=== PATIENT | male | born 1940 | race Caucasian/White ===

== ENCOUNTER 2017-09-10 16:00 | Inpatient (IN) ==
[2017-09-10] MEDS: CITALOPRAM 20 MG TABLET PO SCH (20:06)
[2017-09-10] MEDS: LISINOPRIL 10 MG TABLET PO SCH (20:07)
[2017-09-10] MEDS: MIRABEGRON 25mg TABLET PO SCH (20:08)
[2017-09-10 20:13] VITALS: BMI 27.1
[2017-09-10] MEDS ORDERED: LISINOPRIL 20 MG TABLET PO SCH (21:00)
[2017-09-11] MEDS: ASPIRIN 81 MG CHEWABLE TABLET PO SCH (09:06)
[2017-09-11] MEDS: ASCORBIC ACID 500 MG TABLET PO SCH (09:07)
[2017-09-11] MEDS: GlipiZIDE 5 MG TABLET PO SCH (09:07)
[2017-09-11] MEDS: MULTI-VITAMIN + MINERAL TABLET PO SCH (09:07)
[2017-09-11] MEDS: VITAMIN E 400 UNIT CAPSULE PO SCH (09:07)
[2017-09-11] MEDS: LISINOPRIL 20 MG TABLET PO SCH (09:07)
[2017-09-11] MEDS: ENOXAPARIN 40 MG/0.4 ML INJECTION SQ SCH (09:07)
[2017-09-11] MEDS: OMEGA-3 ACID ESTERS 1 GM CAPSULE PO SCH (09:08)
--- NOTE | 2017-09-11 11:18 | Consult Note ---
Consult Information - Data of Consult Consult date: 09/11/17 Requesting Physician: Napoleon Clemente MD Primary Care Provider: Roxy Merrill MD Family Provider: Roxy Merrill MD - Consult Narrative Reason for consult: Medical managment of HTN, Parkinsons History of present illness: Emmanuel is a pleasant 77-year-old gentleman who resides independently at home with his under the primary care of Dr. Roxy Merrill. Unfortunately he fell striking his head on 09/01/17. He was seen in the emergency room at that time. CT scan of the brain was performed that did not show any acute evidence of intracranial abnormality or hemorrhage. Patient was discharged home. On . He returned to the emergency room for reevaluation complaining of general weakness since his fall. A repeat CT scan was performed that again showed no intracranial abnormalities or hemorrhages. He was given IV hydration was able to ambulate using his walker without difficulty. He was discharged home. Today 09/10/17. He followed up with primary care provider, Dr. Roxy Merrill. He was noted to have some Hemianopsia with right side dyscoordination. There is concern that he has possibly had a CVA. Given his underlying parkinsons accompanied with new weakness and discoordination the rehabilitation unit was contacted and accepted patient for direct admission for ongoing evaluation and therapy for strengthening. Hospital services were consulted for medical management of existing comorbidities including hypertension, diabetes, hyperlipidemia or concerns. Emmanuel is seen this morning during breakfast. He is working with speech therapy while attempting to drink liquids out of a straw he does cough/choke. He denies having any acute pain upon examination. He states that he feels weak and generally fatigued. Past Medical History Patient Stated Medical History Recent fall with head injury- 09/01/17 Parkinson's with dementia Hypertension Type II diabetes. BPH Hyperlipidemia Depression History of TIA Constipation History of shingles Surgical History: Tonsillectomy. Right ankle surgery Family History Updates: Father and mother both with Parkinson's disease - Social History Smoking status: Never smoker Substance use type: does not use Housing: house Household members: spouse Current occupational status: retired Current residence: Apartment/Private Home Social history: Primary care provider, Dr. Roxy Merrill Review of Systems All systems PM: 10-point ROS was reviewed, no additional remarkable complaints except - Constitutional Constitutional: Present: fatigue, weakness - EENMT Eyes: Present: change in vision Medications Home Medications Medication Instructions Recorded Confirmed Type Metformin HCl [Metformin HCl ER] 1,000 mg PO BID #0 05/15/13 09/10/17 History Mirabegron [Myrbetriq] 50 mg PO HS #0 08/19/15 09/10/17 History Ascorbic Acid [Vitamin C] 500 mg PO DAILY 09/01/17 09/10/17 History Carbidopa/Levodopa 1 tab PO BID 09/01/17 09/10/17 History [Carbidopa-Levodopa 25-100 Tab] Citalopram [Celexa] 20 mg PO HS 09/01/17 09/10/17 History Dulaglutide [Trulicity] 0.75 mg PO WEEKLY 09/01/17 09/10/17 History Dutasteride/Tamsulosin HCl 1 tab PO DAILY 09/01/17 09/05/17 History [Dutasteride-Tamsulosin 0.5-0.4] GlipiZIDE [Glucotrol] 5 mg PO DAILY 09/01/17 09/10/17 History Lisinopril [Prinivil] 20 mg PO BID 09/01/17 09/10/17 History Multivitamin [One Daily] 1 tab PO DAILY 09/01/17 09/10/17 History [place]-3/Dha/Epa/Fish Oil [Fish Oil 1,000 mg PO DAILY 09/01/17 09/10/17 History 1,000 mg Softgel] Verapamil SR [Calan Sr] 180 mg PO BID 09/01/17 09/10/17 History Vitamin E 400 unit PO DAILY 09/01/17 09/10/17 History Lisinopril [Prinivil] 10 mg PO HS 09/10/17 09/10/17 History Allergies Allergy/AdvReac Type Severity Reaction Status Date / Time atorvastatin [From Lipitor] Allergy Unknown Verified 09/10/17 20:28 clindamycin Allergy Unknown Verified 09/10/17 20:28 donepezil [From Aricept] Allergy Unknown Verified 09/10/17 20:27 Penicillins Allergy Unknown CONSTRICTS Verified 09/05/17 13:15 AIRWAY shellfish derived Allergy Unknown Verified 09/05/17 13:15 Exam Vital Signs: Temperature 97.6 F 09/10/17 21:14 Pulse Rate 73 09/10/17 21:14 Respiratory Rate 20 09/10/17 21:14 Blood Pressure 176/73 H 09/10/17 21:14 Pulse Oximetry 99 09/10/17 21:14 Height/Weight/BMI: Height 1.75 m Weight 83.5 kg Body Mass Index 27.1 - Constitutional Present: no acute distress, well nourished, well developed - Routine HEENT Exam Eye: Present: EOMI ENT: Present: mucous membranes moist, dentition normal - Routine Respiratory Exam Present: CTA bilaterally. Absent: wheezes - Routine Cardiovascular Exam Present: RRR, S1, S2. Absent: murmur - Routine Abdominal Exam Present: soft, normoactive bowel sounds, non distended. Absent: tenderness - Routine Extremities Exam Present: no edema - Routine Skin Exam Present: dry, warm - Routine Neurological Exam Present: alert, oriented X3, CN II-XII intact, moving all extremities, vision grossly intact, hearing grossly intact, normal speech. Absent: sensory deficit , motor deficit - Routine Psychiatric Exam Present: normal affect, cooperative Results - Labs CBC & Chem 7: 09/11/17 04:26 09/11/17 04:26 Assessment and Plan (1) Weakness Current visit: Yes Status: Acute Assessment and Plan: Impression Weakness Hypokalemia- POA- 3.0 Hypernatremia- POA- 145 ? Recent CVA Type II diabetes Hypertension Hyperlipidemia Parkinson's with dementia Plan Agree with admission to IRU under care of Dr. Clemente for ongoing therapy and strengthening. Given Hypokalemia will given PO potassium 40 meq at 1200 and 1700 today. Then schedule 20 meq BID. Will check BMP tomorrow morning to follow electrolytes Hypernatremia - encourage PO intake. Monitor Accu-Cheks, continue on home glipizide, metformin Continue with other home medications. Monitor blood pressure as it is elevated this morning, currently on verapamil. Home lisinopril was increased to 20 mg daily plus 10 meq at bedtime. Will add PRN hydralazine as needed for hypertension. Lovenox subcutaneous daily for DVT prophylaxis Current work with PT and OT for ongoing strengthening The hospitalist services will continue to follow patient medically manage his existing comorbidities during his stay [facility]. At time of discharge his medical care will return to his primary care provider Dr. Desirae Barcenas clinic Did speak with patients - Kelly. We discussed obtaining a MRI to confirm CVA and possible treatment of Plavix. Discussed risks and benefits of Plavix and pts increase risk of falling. 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 Chart reviewed. Case discussed with my [employer] SUPER[employer]OR [employer]ARD. Care plan developed with my supervision; agree with above. Admitted to IRU for restorative care secondary to increased weakness and falls- PCP concerned about possible stroke. Patient notes much harder to get around. Legs not cooperating well. Not really feeling weakness or discoordination of his arm or legs. Report when he falls, his legs 'just go out from under him.' Denies feeling dizzy. No recent viral syndrome. Not noting SOA, cough, or chest congestion. No chest pressure, pain, or palpitations. Eating well-no nausea or ab pain. Stools stable; sometime slow, but not watery stool. Urinating at baseline. Lungs: decreased bilaterally. No distress on RA. CV: regular AB: soft nt/nd MSE: awake alert appropriate Imaging: MRI does confirm large area of acute right posterior temporal and occipital lobe infarct. Plan: Agree with admission to IRU for restorative therapy following his CVA and to help maximize strength in light of Parkinson's. With stroke occurring on ASA , could initiate Plavix therapy to help provide further vascular protection. Will check Lipid profile - pt does list allergy to atorvastatin (Lipitor). Continue home antihypertensive - avoid hypotension. Monitor blood sugars - avoid hypoglycemia. Replace potassium - monitor BMP secondary to medication and hypokalemia. Encourage participation with therapy to maximize functional status. Medically stable for IRU floor activities. Hospital Course Summary Disclaimer: The visit summary below is not to be considered part of the above Progress Note. Hospital Course: 09/11/17 Impression Weakness Hypokalemia- POA- 3.0 Hypernatremia- POA- 145 ? Recent CVA Type II diabetes Hypertension Hyperlipidemia Parkinson's with dementia Plan Agree with admission to IRU under care of Dr. Clemente for ongoing therapy and strengthening. Given Hypokalemia will given PO potassium 40 meq at 1200 and 1700 today. Then schedule 20 meq BID. Will check BMP tomorrow morning to follow electrolytes Hypernatremia - encourage PO intake. Monitor Accu-Cheks, continue on home glipizide, metformin Continue with other home medications. Monitor blood pressure as it is elevated this morning, currently on verapamil. Home lisinopril was increased to 20 mg daily plus 10 meq at bedtime. Will add PRN hydralazine as needed for hypertension. Lovenox subcutaneous daily for DVT prophylaxis Current work with PT and OT for ongoing strengthening The hospitalist services will continue to follow patient medically manage his existing comorbidities during his stay [facility]. At time of discharge his medical care will return to his primary care provider Dr. Desirae Barcenas clinic Did speak with patients - Kelly. We discussed obtaining a MRI to confirm CVA and possible treatment of Plavix. Discussed risks and benefits of Plavix and pts increase risk of falling. She will think about this and we will discuss this later this afternoon further when she is here [place] [facility]
[2017-09-11] MEDS ORDERED: HYDRALAZINE 10 MG TABLET PO PRN (11:34)
--- NOTE | 2017-09-11 12:24 | IRU History & Physical Report ---
HPI IRU Date: Date: 09/11/17 Time: 1216 Chief complaint: I'm weak HPI: Mr. Mullins is pleasant 77-year-old male referred by Dr. Rashi Merrill who is also his primary care physician. The patient has had 2 visits to the emergency department recently. Initially he presented on 09/01/2017 after he had fallen at home and striking his head on a wall. Evaluation at that time in the emergency department revealed a negative exam and negative CT scan. He was sent home. The patient was again seen in the emergency department on 09/05/2017. That time he was complaining of weakness. He was given IV fluids and potassium supplement. Repeat CT scan was negative. He appeared to be more confused than he had been previously according to his . According to the note, the patient 's wanted to take him home over the holidays and seek further evaluation later. He was subsequently seen at Dr. Merrill's office on 09/10/2017 for evaluation. At that time she noted that he had a significant left hemianopsia as well as some right sided weakness. She felt as though the patient had suffered an acute stroke in the preceding week some time. He was unable to be cared for at home and thus referral was made to acute inpatient rehabilitation. Upon my evaluation, the patient does not have recollection of his recent history. He is somewhat slow to respond although does know that the month is August. He believes the date is August 17 or (it is the ). He was able to come up with the year without prompting and knows that the president is President Mian. The patient denies any headaches. The patient has multiple medical problems including a recent diagnosis of Parkinson's disease. He has diabetes mellitus and does not use insulin. He checks his blood sugars daily and they run around 145-160 fasting. He does not recall what his A1c is running. He has had several falls over the last several weeks apparently. Does use a front-wheeled walker at home. He lives with his at home. In addition the patient does have overactive bladder with urinary incontinence, dementia associated with his Parkinson's disease and hypertension. Prior level of functioning is as follows: He was independent for eating and modified independent for grooming, bathing, upper and lower body dressing, toileting, bed/chair/wheelchair transfers, toilet transfers and walking. He was modified independent for stair climbing. He used a rolling walker. provided I-ADLs. Current level of functioning is as follows: He was unable to be tested for grooming, bathing or upper and lower body dressing or toileting. He requires moderate assistance for bed/chair/wheelchair transfers, minimum assistance for toilet transfers, moderate assistance for walking. He was not able to be tested for stairs. The following medical conditions are noted and require active monitoring and/or management: 1. Recent CVA characterized by left hemianopsia and some right upper extremity weakness and reduced fine motor movement. He is at risk for further extension of the stroke with further weakness. 2. Dementia related to his Parkinson's disease: He is at risk for further memory loss and inability to care for himself 3. Hypertension: Currently his blood pressures are not controlled. He is running 160 systolic. He is at risk for further uncontrolled hypertension. 4. Diabetes mellitus type 2: He is at risk for hypoglycemia or hyperglycemia depending on his work output and his intake. 5. Hypokalemia: His current potassium is low and this will need to be supplemented. The following therapies will be needed: 1. Physical therapy: for transfers and ambulation and stairs. 2. Occupational therapy: for ADL's and transfers. 3. Dietitian: In view of his diabetes. 4. Medical management: for the above conditions. 5. 24 hour Rehabilitation Nursing to monitor and address the following: Close monitoring of blood sugars, blood pressures and neurologic status will be undertaken. He is at risk for falls and this will be monitored and treated as well. [facility] Patient Stated Medical History Cerebrovascular Accident Yes: recent Dementia Yes Parkinson's Disease Yes Transient Ischemic Attacks ( Yes TIA) Hypertension Yes Diabetes Mellitus Type 2 Yes Constipation No Hx Benign Prostatic Yes Hyperplasia Hx Incontinence Yes Shingles Yes: hx Depression Yes Medical History Updates: 1. Recent CVA characterized by left hemianopsia and right upper extremity weakness. 2. Dementia related to Parkinson's disease. 3. Hypertension. 4. Diabetes mellitus type 2 Surgical History: Tonsillectomy. Right ankle surgery Family History: Father of Parkinson's disease. Mother of old age according to the patient. - Social History Smoking status: Never smoker Alcohol intake: former (rare intake of wine in the past) Last drink: unknown Current occupational status: retired Current residence: Apartment/Private Home Social history: Primary care provider, Dr. 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 He lives at home with his in their own home. She does provide IADL assistance. Review of Systems - Constitutional Constitutional: Present: lethargy, weakness. Absent: anorexia, chills, fatigue , fever(s), headache(s), malaise, night sweats, weight gain, weight loss Comments: Increased confusion - EENMT Eyes: Present: change in vision (apparently has new loss of vision left shoulder vision), loss of vision. Absent: blurry vision, diplopia Mouth/Throat: Absent: changes in swallowing, painful swallowing, change in taste , bleeding gums, change in voice - Cardiovascular Cardiovascular: Absent: chest pain, palpitations, syncope, dyspnea on exertion, orthopnea, edema, cyanosis, heart murmur Rhythm: Present: regular rhythm Vascular: Absent: intermittent claudication, pedal edema, unilateral swelling - Respiratory Respiratory: Absent: cough, dyspnea, hemoptysis, dyspnea on exertion, wheezing, pain on inspiration, chest congestion, excessive phlegm production - Gastrointestinal Gastrointestinal: Absent: abdominal pain, change in bowel habits, constipation, diarrhea, dyspepsia, dysphagia, early satiety, hematochezia, melena, nausea, vomiting - Genitourinary Genitourinary: Present: urinary incontinence - Musculoskeletal Musculoskeletal: Present: myalgias. Absent: abnormal gait, arthralgias, back pain, joint swelling, limited range of motion, muscle weakness - Integumentary/Breasts Integumentary: Absent: alopecia, erythema, lesions, pruritus, rash, jaundice - Neurological Neurological: Present: focal weakness (right upper extremity with reduced fine motor movement), loss of vision (dense left hemianopsia), memory loss (appears to have memory loss.), weakness. Absent: abnormal gait, abnormal movements, abnormal speech, convulsions, dizziness, frequent falls, headache(s), numbness, paresthesias, tremor(s) - Psychiatric Psychiatric: Absent: abnormal sleep pattern, anxiety, depression - Endocrine Endocrine: Absent: cold intolerance, flushing, heat intolerance, palpitations - Hematologic/Lymphatic Hematologic/Lymphatic: Absent: easy bleeding, easy bruising, lymphadenopathy - Allergic/Immunologic Allergic/Immunologic: Absent: urticaria Medications Home Medications Medication Instructions Recorded Confirmed Type Metformin HCl [Metformin HCl ER] 1,000 mg PO BID #0 05/15/13 09/10/17 History Mirabegron [Myrbetriq] 50 mg PO HS #0 08/19/15 09/10/17 History Ascorbic Acid [Vitamin C] 500 mg PO DAILY 09/01/17 09/10/17 History Carbidopa/Levodopa 1 tab PO BID 09/01/17 09/10/17 History [Carbidopa-Levodopa 25-100 Tab] Citalopram [Celexa] 20 mg PO HS 09/01/17 09/10/17 History Dulaglutide [Trulicity] 0.75 mg PO WEEKLY 09/01/17 09/10/17 History Dutasteride/Tamsulosin HCl 1 tab PO DAILY 09/01/17 09/05/17 History [Dutasteride-Tamsulosin 0.5-0.4] GlipiZIDE [Glucotrol] 5 mg PO DAILY 09/01/17 09/10/17 History Lisinopril [Prinivil] 20 mg PO BID 09/01/17 09/10/17 History Multivitamin [One Daily] 1 tab PO DAILY 09/01/17 09/10/17 History [place]-3/Dha/Epa/Fish Oil [Fish Oil 1,000 mg PO DAILY 09/01/17 09/10/17 History 1,000 mg Softgel] Verapamil SR [Calan Sr] 180 mg PO BID 09/01/17 09/10/17 History Vitamin E 400 unit PO DAILY 09/01/17 09/10/17 History Lisinopril [Prinivil] 10 mg PO HS 09/10/17 09/10/17 History Allergies Allergy/AdvReac Type Severity Reaction Status Date / Time atorvastatin [From Lipitor] Allergy Unknown Verified 09/10/17 20:28 clindamycin Allergy Unknown Verified 09/10/17 20:28 donepezil [From Aricept] Allergy Unknown Verified 09/10/17 20:27 Penicillins Allergy Unknown CONSTRICTS Verified 09/05/17 13:15 AIRWAY shellfish derived Allergy Unknown Verified 09/05/17 13:15 Exam Vital Signs: Temperature 98.0 F 09/11/17 08:00 Pulse Rate 79 09/11/17 08:00 Respiratory Rate 16 12/29/17 08:00 Blood Pressure 180/88 H 09/11/17 08:00 Pulse Oximetry 96 09/11/17 08:00 Height/Weight/BMI: Height 1.75 m Weight 83.5 kg Body Mass Index 27.1 - Constitutional Present: no acute distress, well nourished, well developed, average body habitus , cooperative Comments: Somewhat slow to respond at times. - Routine HEENT Exam Head: Present: normocephalic, atraumatic. Absent: cushingoid faces, abrasion, laceration, hematoma Eye: Present: EOMI, PERRL. Absent: conjunctival icterus, scleral injection, periorbital swelling, nystagmus ENT: Present: mucous membranes moist, oropharynx clear Comments: Dense left hemianopsia noted on confrontation. Pupils equal in size and equally respond to light. - Routine Neck Exam Present: supple, full ROM, trachea midline. Absent: lymphadenopathy, thyromegaly, tenderness, swelling - Routine Chest/Breast/Axilla Exam Chest wall: Absent: tenderness, mass Axillae: Absent: lymphadenopathy, mass - Routine Respiratory Exam Present: CTA bilaterally. Absent: accessory muscle use, decreased breath sounds , prolonged expiratory phase, rales, respiratory distress, rhonchi, stridor, wheezes, crackles, distant breath sounds - Routine Cardiovascular Exam Present: RRR, S1, S2, no murmur. Absent: gallop, S3, S4, click, irregular rhythm - Routine Abdominal Exam Present: soft, normoactive bowel sounds, non distended, non tender. Absent: rebound, guarding, firm, rigid, organomegaly, mass, hernia, wound - Routine Extremities Exam Present: no edema, non tender, pulses intact, normal capillary refill. Absent: cyanosis, clubbing - Routine Back/Spine/Pelvis Exam Back/Spine: Present: full ROM. Absent: scoliosis, kyphosis - Routine Skin Exam Present: intact, dry, warm. Absent: cyanosis, erythema, pallor, mottling, petechiae, urticaria, lesions, jaundice - Routine Neurological Exam Present: alert, oriented X3, CN II-XII intact, motor deficit (slight reduction in fine motor movement right upper extremity), moving all extremities, normal speech Dense left hemianopsia noted. In addition, patient does seem to have some reduced fine motor movement particular involving the right upper extremity. I do not see any facial droop. Strength of both lower extremities appears to be bilaterally and symmetrically reduced. - Routine Psychiatric Exam Present: normal affect, cooperative. Absent: normal thought process (displays loss of memory and some confusion), good insight, good judgment, depressed, anxious Sepsis Assessment - Evaluation Severe Sepsis: none seen IRU A/P (1) Ischemic cerebrovascular accident (CVA) Current visit: Yes Status: Acute Based on left hemianopsia as well as some right upper extremity weakness, he apparently has had a recent CVA. He is at risk for further evolution of the CVA as well as decline neurologically. (2) Benign essential hypertension Current visit: Yes Status: Chronic Has a history of hypertension. However blood pressures at present are running a bit high at 180 systolic. He is at risk for uncontrolled hypertension and medications will be adjusted etc. (3) Parkinson disease Current visit: Yes Status: Chronic Has a recent diagnosis of Parkinson's disease. In conjunction with as he likely does have some dementia. He is at risk for falls as well as further functional decline. (4) Hypokalemia Current visit: Yes Status: Acute Potassium was low in the emergency department and is again low at the present time. He will be placed on supplemental potassium. (5) DM type 2 (diabetes mellitus, type 2) Qualifiers: Diabetes mellitus complication status: without complication Diabetes mellitus terminal worker insulin use: without terminal worker use Qualified Code(s): E11.9 - Type 2 diabetes mellitus without complications Current visit: Yes Status: Chronic Due to variable energy requirements and variable intake, he is at risk for hyperglycemia or hypoglycemia. DVT Prophylaxis: SCD's, Lovenox Resuscitation Status: Do Not Resuscitate - Course Hospital Course: Napoleon Clemente MD: - Interventions to Obtain Goals PT Treatment Plan: Balance/Proprioception, Functional Activities, Gait Training , Patient/Family Education, Therapeutic Exercise OT Treatment Plan: ADL (Basic Care), Balance Training, Pt./Family Education, Ther. Exercise for ADL Goals Progress/Modifications: A multidisciplinary approach would be undertaken for his physical therapy, occupational therapy with 24 rehabilitation nursing and medical supervision. He is a complex patient with multiple medical problems. He is at risk for further neurologic decline, uncontrolled hypertension as well as uncontrolled diabetes.
--- NOTE | 2017-09-11 13:29 | IRU 24Hr Post Admit Eval ---
24 Hr Post Admission Physical - Relevant Changes Relevant Changes: No Reviewed: I have reviewed the patient's information and concur with the finding and results of the pre-admission screen. Certification: I certify the patient for rehabilitation. - Patient Condition (1) Ischemic cerebrovascular accident (CVA) Status: Acute Code(s): I63.9 - Cerebral infarction, unspecified Classification: Present on IRF Admission, IRF Tx That Should Address Diagnosis, Diagnosis Requiring Medical Follow Up (2) Benign essential hypertension Status: Chronic Code(s): I10 - Essential (primary) hypertension Classification: Present on IRF Admission, IRF Tx That Should Address Diagnosis, Diagnosis Requiring Medical Follow Up (3) Parkinson disease Status: Chronic Code(s): G20 - Parkinson's disease Classification: Present on IRF Admission, IRF Tx That Should Address Diagnosis, Diagnosis Requiring Medical Follow Up (4) Hypokalemia Status: Acute Code(s): E87.6 - Hypokalemia Classification: Present on IRF Admission, IRF Tx That Should Address Diagnosis, Diagnosis Requiring Medical Follow Up (5) DM type 2 (diabetes mellitus, type 2) Status: Chronic Qualifiers: Diabetes mellitus complication status: without complication Diabetes mellitus terminal make up operator insulin use: without terminal make up operator use Qualified Code(s): E11.9 - Type 2 diabetes mellitus without complications Code(s): E11.9 - Type 2 diabetes mellitus without complications Classification: Present on IRF Admission, IRF Tx That Should Address Diagnosis, Diagnosis Requiring Medical Follow Up - Prior Functional Status Lives With: Spouse Residence Type: Apartment/Private Home Assitive Devices: Front Wheeled Walker Prior Functional Status: Indep. at home or school, Depend. w/ IADL - Current Functional Status Current Level of Function: Current level of functioning is as follows: He was unable to be tested for grooming, bathing or upper and lower body dressing or toileting. He requires moderate assistance for bed/chair/wheelchair transfers, minimum assistance for toilet transfers, moderate assistance for walking. He was not able to be tested for stairs. Failed Alternative Therapy: Yes Patient Requirements: The patient requires oversight by rehabilitation physician to manage their rehabilitation treatment plan and multidisciplinary approach to care that can only be provided in an IRF and requires a multidisciplinary approach to care, provided by professional PTs, OTs, STs, dieticians, RTs, rehabilitation nurses and is not available in lesser levels of care. Limitations Req: Mobility Impairment, ADL Impairment, Limited Mobility, Cognitive Impairment Therapy: The patient is to receive therapy at least 5 days a week. Plan of Care Comment: Physical therapy: 75 minutes 3 days weekly, 90 minutes 2 days weekly. Occupational therapy: 75 minutes 3 days weekly, 90 minutes 2 days weekly. Speech therapy: 30 minutes 3 days weekly - Complications/Comorbidities Impact on Functional Outcomes: Patient's Parkinson's disease and mental status/ cognitive impairment may impact his functional outcome. Barriers to Discharge: Weakness, Balance, Endurance, Comprehension, Medical Limitation - Plan to Avoid Complications Plan to Avoid Complications: The patient cannot receive this care in a lesser intensive setting such as Alf or Outpatient Therapy due to the patient requiring the following : The patient requires close monitoring of his blood sugars as well as blood pressure and neurologic status. He requires 24 rehabilitation nursing monitoring as well as a multidisciplinary approach involving speech therapy, occupational therapy and physical therapy. He requires medical supervision.
--- NOTE | 2017-09-11 17:46 | Magnetic Resonance Report ---
Indication: Recent fall with head injury and mental status changes, possible CVA PROCEDURE: MR head/brain wo con: Encounter: Initial Comparisons: Head CT dated September 05, 2017 Technique: Multiplanar, multisequence, MR imaging of the head without contrast was acquired. FINDINGS: Large area of acute diffusion restriction in the right medial posterior temporal lobe extending into the occipital lobe. This area shows T2/FLAIR hyperintensity as expected and some areas of laminar cortical necrosis. No acute hemorrhage or hemorrhagic transformation. Severe atrophy. The ventricles are dilated but proportional to the degree of atrophy. There are extensive areas of T2-weighted and T2 FLAIR weighted signal abnormality in the deep frontoparietal white matter that most likely represent small vessel ischemic disease. This is advanced for the patient's age. Old lacunar infarcts in the basal ganglia, shirley and midbrain. There is no evidence of an intracranial mass lesion or hydrocephalus. The visualized portions of the orbits, calvarium, paranasal sinuses, and skull base demonstrate no significant abnormality. IMPRESSION: Large acute right posterior temporal and occipital lobe infarct in the [employer] territory. .
[2017-09-11] MEDS: LISINOPRIL 10 MG TABLET PO SCH (21:23)
[2017-09-11] MEDS: CITALOPRAM 20 MG TABLET PO SCH (21:23)
[2017-09-11] MEDS: MIRABEGRON 25mg TABLET PO SCH (21:24)
[2017-09-12] MEDS ORDERED: HYDRALAZINE 10 MG TABLET PO PRN (00:08)
[2017-09-12] MEDS: ASPIRIN 81 MG CHEWABLE TABLET PO SCH (08:29)
[2017-09-12] MEDS: MULTI-VITAMIN + MINERAL TABLET PO SCH (08:29)
[2017-09-12] MEDS: GlipiZIDE 5 MG TABLET PO SCH (08:29)
[2017-09-12] MEDS: VITAMIN E 400 UNIT CAPSULE PO SCH (08:29)
[2017-09-12] MEDS: OMEGA-3 ACID ESTERS 1 GM CAPSULE PO SCH (08:29)
[2017-09-12] MEDS: LISINOPRIL 20 MG TABLET PO SCH (08:29)
[2017-09-12] MEDS: ASCORBIC ACID 500 MG TABLET PO SCH (08:29)
[2017-09-12] MEDS: ENOXAPARIN 40 MG/0.4 ML INJECTION SQ SCH (08:52)
--- NOTE | 2017-09-12 12:48 | IRU Plan of Care ---
[facility] [place] Overall Plan of Care - Date Date: 09/12/17 - Patient Impairments (1) Ischemic cerebrovascular accident (CVA) Code(s): I63.9 - Cerebral infarction, unspecified Status: Acute Classification: Present on IRF Admission, IRF Tx That Should Address Diagnosis, Diagnosis Requiring Medical Follow Up (2) Weakness Code(s): R53.1 - Weakness Status: Acute Classification: Present on IRF Admission, IRF Tx That Should Address Diagnosis (3) Benign essential hypertension Code(s): I10 - Essential (primary) hypertension Status: Chronic Classification: Present on IRF Admission, IRF Tx That Should Address Diagnosis, Diagnosis Requiring Medical Follow Up (4) DM type 2 (diabetes mellitus, type 2) Qualifiers: Diabetes mellitus complication status: without complication Diabetes mellitus director long term care insulin use: without correction use Qualified Code(s): E11.9 - Type 2 diabetes mellitus without complications Code(s): E11.9 - Type 2 diabetes mellitus without complications Status: Chronic Classification: Present on IRF Admission, IRF Tx That Should Address Diagnosis, Diagnosis Requiring Medical Follow Up (5) Parkinson disease Code(s): G20 - Parkinson's disease Status: Chronic Classification: Present on IRF Admission, IRF Tx That Should Address Diagnosis, Diagnosis Requiring Medical Follow Up - Relevant Changes Relevant Changes: No Reviewed: I have reviewed the patient's information and concur with the finding and results of the pre-admission screen. Certification: I certify the patient for rehabilitation. - Medical Prognosis Medical Prognosis: Good Vital Signs: Last Vital Signs Temp 97.7 F 09/12/17 08:00 Pulse 73 09/12/17 11:29 Resp 16 09/12/17 08:00 BP 161/83 H 09/12/17 11:29 Pulse Ox 96 09/12/17 08:00 - Anticipated Interventions Anticipated Interventions: The patient requires inpatient IRF care for PT, OT, and/or ST for residuals remaining from acute right posterior brain ischemic stroke resulting in muscular weakness and strength deficits. - Current Functional Status Failed Alternative Therapy: Yes Patient Requires: The patient requires oversight by rehabilitation physician to manage their rehabilitation treatment plan and multidisciplinary approach to care that can only be provided in an IRF and requires a multidisciplinary approach to care, provided by professional PTs, OTs, STs, rehabilitation nurses, and may require STs, dieticians, and RTS. This is not available in lesser levels of care. Therapy: The patient is to receive therapy at least [address] Treatment Plan: Swallow Precautions, Modified Diet ST Treatment Plan Duration: One Week ST Treatment Plan Frequency: Three Times Per Week Plan of Care Comment: PT: 75 minutes three days weekly, 90 minutes two days weekly. OT: 75 minutes three days weekly, 90 minutes two days weekly. ST: 30 minutes three days weekly - Anticipated LOS/Outcomes Anticipated Functional Outcome: It is anticipated the patient will able to safely return to his home with assistance from his for some ADL's, but able to ambulate at modified independent level and perform most of his ADL's at modified independent level of functioning. Anticipated Length of Stay (days): 14 Anticipated DC Destination: Home, Self Care, Home Health Service Home Safety Plan: The patient will be provided with the development of a Home Safety Plan for return to a home or home-like environment and and to ensure safety post discharge. - Plan to Avoid Complications Barriers to Attaining Goals: Weakness, Balance, Endurance, Comprehension Plan to Avoid Complications: The patient cannot receive this care in a lesser intensive setting such as Alf or Outpatient Therapy due to the patient requiring the following : He requires close 24 hour rehab nursing monitoring for neurologic decline as well as close monitoring of his BP and blood sugars due to his diabetes and variable energy demands during rehab. He requires a multi-disciplinary approach in view of his multiple medical problems.
[2017-09-12] MEDS: CITALOPRAM 20 MG TABLET PO SCH (20:24)
[2017-09-12] MEDS: MIRABEGRON 25mg TABLET PO SCH (20:24)
[2017-09-12] MEDS: LISINOPRIL 10 MG TABLET PO SCH (20:26)
[2017-09-13] MEDS: Verapamil SR 120 MG TABLET E.R. PO SCH (08:07)
[2017-09-13] MEDS: LISINOPRIL 20 MG TABLET PO SCH (08:08)
[2017-09-13] MEDS: ENOXAPARIN 40 MG/0.4 ML INJECTION SQ SCH (09:03)
[2017-09-13] MEDS: ASCORBIC ACID 500 MG TABLET PO SCH (09:03)
[2017-09-13] MEDS: MULTI-VITAMIN + MINERAL TABLET PO SCH (09:04)
[2017-09-13] MEDS: GlipiZIDE 5 MG TABLET PO SCH (09:04)
[2017-09-13] MEDS: VITAMIN E 400 UNIT CAPSULE PO SCH (09:05)
[2017-09-13] MEDS: OMEGA-3 ACID ESTERS 1 GM CAPSULE PO SCH (09:05)
[2017-09-13] MEDS: ASPIRIN 81 MG CHEWABLE TABLET PO SCH (09:13)
[2017-09-13] MEDS: LISINOPRIL 10 MG TABLET PO SCH (22:31)
[2017-09-13] MEDS: CITALOPRAM 20 MG TABLET PO SCH (22:31)
[2017-09-13] MEDS: MIRABEGRON 25mg TABLET PO SCH (22:32)
[2017-09-14] MEDS: VITAMIN E 400 UNIT CAPSULE PO SCH (08:42)
[2017-09-14] MEDS: MULTI-VITAMIN + MINERAL TABLET PO SCH (08:42)
[2017-09-14] MEDS: Verapamil SR 120 MG TABLET E.R. PO SCH (08:42)
[2017-09-14] MEDS: ASCORBIC ACID 500 MG TABLET PO SCH (08:43)
[2017-09-14] MEDS: LISINOPRIL 20 MG TABLET PO SCH (08:44)
[2017-09-14] MEDS: GlipiZIDE 5 MG TABLET PO SCH (08:44)
[2017-09-14] MEDS: OMEGA-3 ACID ESTERS 1 GM CAPSULE PO SCH (08:44)
[2017-09-14] MEDS: ENOXAPARIN 40 MG/0.4 ML INJECTION SQ SCH (08:46)
[2017-09-14] MEDS: ASPIRIN 81 MG CHEWABLE TABLET PO SCH (08:46)
--- NOTE | 2017-09-14 10:57 | IRU Progress Note ---
- Subjective/Serverity of Illness Date: 09/14/17 Mr. Mullins was seen on the inpatient rehabilitation unit. He is cooperative with therapy but there are cognition issues. He tends to joke and deflect from answering questions directly. He denies any chest pain, shortness of breath, cough or sputum. He reports his bowels are moving adequately. Brief therapy update: For occupational therapy demonstrates poor safety awareness and some impulsiveness. For physical therapy he demonstrates definite left-sided neglect and right-sided lower extremity weakness predominantly. Update on medical issues were actively monitoring and managin. Recent CVA characterized by left hemianopsia and some right upper extremity weakness and reduced fine motor movement. MRI confirms large ischemic stroke involving the right occipital area. Continues to demonstrate left-sided neglect and right lower extremity weakness. No evidence of progression of the stroke however has been noted. 2. 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 3. Hypertension: His blood pressures are improved in the 140-150 range. 4. Diabetes mellitus type 2: Blood sugars reviewed and are stable. No episodes of hypoglycemia nor extreme hyperglycemia. 5. Hypokalemia: Serum potassium has normalized at present. Exam Vital Signs: Temperature 97.5 F 09/14/17 08:41 Pulse Rate 88 09/14/17 08:41 Respiratory Rate 16 09/14/17 08:41 Blood Pressure 143/86 H 09/14/17 08:41 Pulse Oximetry 98 09/14/17 08:41 Height/Weight/BMI: Height 1.75 m Weight 83.5 kg Body Mass Index 27.1 - Constitutional Present: no acute distress, well nourished, well developed, cooperative Comments: He does demonstrate reduced cognition and memory. Amazingly he did remember my name from last week even though I had seen him on only one or 2 occasions. - Routine HEENT Exam Head: Present: normocephalic Eye: Present: EOMI ENT: Present: mucous membranes moist, dentition normal - Routine Neck Exam Present: supple - Routine Respiratory Exam Present: CTA bilaterally. Absent: accessory muscle use, dyspnea, decreased breath sounds, respiratory distress, wheezes - Routine Cardiovascular Exam Present: RRR, S1, S2. Absent: murmur, S3, S4 - Routine Abdominal Exam Present: soft, normoactive bowel sounds, non distended. Absent: tenderness - Routine Extremities Exam Present: no edema. Absent: cyanosis - Routine Skin Exam Present: dry, warm - Routine Neurological Exam Present: alert, CN II-XII intact. Absent: oriented X3 The patient is not fully oriented. However he did remember my name. Demonstrates poor retention of therapy instructions from one day to the next per OT. - Routine Psychiatric Exam Present: normal affect, cooperative. Absent: good insight, good judgment IRU A/P (1) Ischemic cerebrovascular accident (CVA) Current visit: Yes Status: Acute MRI confirms presence of large ischemic CVA involving right occipital area accounting for his left-sided neglect. No evidence of progression has been noted. He is cooperative with therapy but his cognition is a barrier to rapid progress. (2) Weakness Current visit: Yes Status: Acute Patient does demonstrate generalized weakness with more significant weakness in the right lower extremity. (3) Benign essential hypertension Current visit: Yes Status: Chronic Blood pressures are improved. (4) DM type 2 (diabetes mellitus, type 2) Qualifiers: Diabetes mellitus complication status: without complication Diabetes mellitus buttermaker continuous churn insulin use: without buttermaker continuous churn use Qualified Code(s): E11.9 - Type 2 diabetes mellitus without complications Current visit: Yes Status: Chronic Blood sugars are fairly well controlled at present. (5) Parkinson disease Current visit: Yes Status: Chronic (6) Dementia associated with other underlying disease Qualifiers: Dementia behavioral disturbance: without behavioral disturbance Qualified Code(s): F02.80 - Dementia in other diseases classified elsewhere without behavioral disturbance Current visit: Yes Status: Chronic Patient does demonstrate reduced cognition and reduced memory from one day to the next. Likely this is related to his underlying Parkinson's disease. DVT Prophylaxis: Lovenox Resuscitation Status: Do Not Resuscitate - Course Hospital Course: Napoleon Clemente MD: 09/14/17 11:00 Progress is slow. Demonstrates left sided neglect and right lower extremity weakness with therapy. Reduced cognition/memory evident demonstrated by poor carryover from one day to the next with therapy. Blood sugars and pressures are improved. No evidence of progression of stroke. - Interventions to Obtain Goals PT Treatment Plan: Balance/Proprioception, Functional Activities, Gait Training , Patient/Family Education, Therapeutic Exercise OT Treatment Plan: ADL (Basic Care), Balance Training, Pt./Family Education, Ther. Exercise for ADL Goals Progress/Modifications: Time spent with patient and on floor reviewing data and documentin min Barriers to dismissal: cognition, left sided neglect, weakness Medical decision-making: He is tolerating 3 hours of therapy daily. Progress is slow secondary to his stroke as well as reduced cognition which is pre-existing from his Parkinson's disease. However, I have reassessed his overall status and feel it is appropriate to continue 3 hours of therapy daily for both occupational therapy and physical therapy with speech therapy seeing him 3 times weekly. Blood sugars and pressures are improved. Medically he seems to be stable without evidence of progression of his stroke.
--- NOTE | 2017-09-14 14:50 | Progress Note ---
- Date 09/14/17 Subjective: Mr. Mullins was resting in bed. He was calm and cooperative but his speech was difficult to understand - the nurse noted the same finding yesterday. He is alert to self, sometimes to place. He needs a lot of queuing. He denies any pain , weakness, or dizziness. No chest pain or dyspnea. No abdominal pain or GI complaints and he denies dysphagia. Objective Vital signs: Temperature 97.5 F 09/14/17 08:41 Pulse Rate 88 09/14/17 08:41 Respiratory Rate 16 09/14/17 08:41 Blood Pressure 143/86 H 09/14/17 08:41 Pulse Oximetry 98 09/14/17 08:41 Height/Weight/BMI: Height 1.75 m Weight 83.5 kg Body Mass Index 27.1 - Constitutional Present: no acute distress, well nourished, well developed - Routine HEENT Exam Head: Present: normocephalic Eye: Present: PERRL. Absent: conjunctival icterus, scleral injection ENT: Present: mucous membranes moist, oropharynx clear - Routine Respiratory Exam Present: CTA bilaterally - Routine Cardiovascular Exam Present: RRR, S1, S2 - Routine Abdominal Exam Present: soft, normoactive bowel sounds, non distended, non tender - Routine Extremities Exam Present: no edema, pulses intact - Routine Skin Exam Present: intact, dry, warm - Routine Neurological Exam Present: alert, motor deficit (right arm/leg - inconsistently follows commands so it's difficult to completely assess) left visual neglect - Routine Psychiatric Exam Present: normal affect. Absent: normal thought process Results - Labs CBC & Chem 7: 09/14/17 05:29 09/14/17 05:29 Assessment and Plan (1) Weakness Current visit: Yes Status: Acute Assessment and Plan: Impression Large acute right posterior temporal and occipital lobe infarct in the [employer] territory Weakness Hypokalemia- POA- 3.0 Hypernatremia- POA- 145 Type II diabetes Hypertension Hyperlipidemia Parkinson's with dementia Plan Hypokalemia and hypernatremia have resolved. BP has been moderately-severely elevated. Received a 1-time dose of clonidine on 09/12/17 and verapamil morning dose was increased to 240 mg - BP is responding favorably but remains elevated. Continue to monitor for now, and if needed could increase evening dose of verapamil for better control. Check lipid panel in am; pt is allergic to atorvastatin; consider alternative agent. Will need further discussions with Mrs. Mullins about starting Plavix. Continue ASA in the meantime. DVT Prophylaxis: Lovenox Resuscitation Status: Do Not Resuscitate - Physician Narrative Narrative: Date: 09/14/17 Time: 1438 Hospital Course Summary Disclaimer: The visit summary below is not to be considered part of the above Progress Note. Hospital Course: 09/11/17 Impression Weakness Hypokalemia- POA- 3.0 Hypernatremia- POA- 145 ? Recent CVA Type II diabetes Hypertension Hyperlipidemia Parkinson's with dementia Plan Agree with admission to IRU under care of Dr. Clemente for ongoing therapy and strengthening. Given Hypokalemia will given PO potassium 40 meq at 1200 and 1700 today. Then schedule 20 meq BID. Will check BMP tomorrow morning to follow electrolytes Hypernatremia - encourage PO intake. Monitor Accu-Cheks, continue on home glipizide, metformin Continue with other home medications. Monitor blood pressure as it is elevated this morning, currently on verapamil. Home lisinopril was increased to 20 mg daily plus 10 meq at bedtime. Will add PRN hydralazine as needed for hypertension. Lovenox subcutaneous daily for DVT prophylaxis Current work with PT and OT for ongoing strengthening The hospitalist services will continue to follow patient medically manage his existing comorbidities during his stay [facility]. At time of discharge his medical care will return to his primary care provider Dr. Desirae Barc[facility] Did speak with patients - Kelly. We discussed obtaining a MRI to confirm CVA and possible treatment of Plavix. Discussed risks and benefits of Plavix and pts increase risk of falling. She will think about this and we will discuss this later this afternoon further when she is here at [facility] 09/14/17 Hypokalemia and hypernatremia have resolved. BP has been moderately-severely elevated. Received a 1-time dose of clonidine on 09/12/17 and verapamil morning dose was increased to 240 mg - BP is responding favorably but remains elevated. Continue to monitor for now, and if needed could increase evening dose of verapamil for better control.
[2017-09-14] MEDS: CITALOPRAM 20 MG TABLET PO SCH (20:15)
[2017-09-14] MEDS: LISINOPRIL 10 MG TABLET PO SCH (20:15)
[2017-09-14] MEDS: MIRABEGRON 25mg TABLET PO SCH (20:16)
[2017-09-15] MEDS: ASCORBIC ACID 500 MG TABLET PO SCH (08:37)
[2017-09-15] MEDS: ENOXAPARIN 40 MG/0.4 ML INJECTION SQ SCH (08:38)
[2017-09-15] MEDS: ASPIRIN 81 MG CHEWABLE TABLET PO SCH (08:38)
[2017-09-15] MEDS: OMEGA-3 ACID ESTERS 1 GM CAPSULE PO SCH (08:39)
[2017-09-15] MEDS: MULTI-VITAMIN + MINERAL TABLET PO SCH (08:39)
[2017-09-15] MEDS: GlipiZIDE 5 MG TABLET PO SCH (08:39)
[2017-09-15] MEDS: LISINOPRIL 20 MG TABLET PO SCH (08:39)
[2017-09-15] MEDS: Verapamil SR 120 MG TABLET E.R. PO SCH (08:40)
[2017-09-15] MEDS: VITAMIN E 400 UNIT CAPSULE PO SCH (08:40)
--- NOTE | 2017-09-15 11:58 | IRU Progress Note ---
- Subjective/Serverity of Illness Date: 09/15/17 Mr. Mullins states that he is tired. He seems to know who I am. He denies any pains at the present time. Continues to demonstrate significant left-sided neglect. He has had no nausea no vomiting and apparently no difficulty swallowing. He is verbal. He denies any chest pain or shortness of breath. He denies any cough. He specifically also denies any shortness of breath with activity. Brief therapy update: While he is cooperative with therapy, education has largely been unsuccessful. Poor carryover from one day to the next. Cognition is a barrier to his progress. Nevertheless he is making some progress with regard to strength and ambulatory distance at over 200 feet. Update on medical issues were actively monitoring and managin. Recent CVA characterized by left hemianopsia and some right upper extremity weakness and reduced fine motor movement. Today on exam, right upper extremity strength appears to be adequate. Fine motor movement is reduced in both upper extremities. Right lower extremity strength is definitely reduced compared to the left. 2. 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 3. Hypertension: Blood pressures continue to be a bit elevated at 150 at times. 4. Diabetes mellitus type 2: His blood sugars look good. He has had no hypoglycemia. 5. Hypokalemia: Serum potassium has normalized at present. Exam Vital Signs: Temperature 97.8 F 09/15/17 08:00 Pulse Rate 76 09/15/17 08:00 Respiratory Rate 18 09/15/17 08:00 Blood Pressure 148/84 H 09/15/17 08:00 Pulse Oximetry 97 09/15/17 08:00 Height/Weight/BMI: Height 1.75 m Weight 82.6 kg Body Mass Index 27.1 - Constitutional Present: no acute distress, well nourished, well developed, cooperative Comments: While he is cooperative, he does demonstrate poor education retention and poor safety awareness. - Routine HEENT Exam Head: Present: normocephalic Eye: Present: EOMI ENT: Present: mucous membranes moist, dentition normal - Routine Neck Exam Present: supple - Routine Respiratory Exam Present: CTA bilaterally. Absent: dyspnea, wheezes, crackles - Routine Cardiovascular Exam Present: RRR, S1, S2. Absent: murmur - Routine Abdominal Exam Present: soft, normoactive bowel sounds, non distended. Absent: tenderness - Routine Extremities Exam Present: no edema, normal capillary refill. Absent: cyanosis - Routine Back/Spine/Pelvis Exam Back/Spine: Present: full ROM - Routine Skin Exam Present: dry, warm - Routine Neurological Exam Present: alert, CN II-XII intact, motor deficit (continues to demonstrate substantial left-sided neglect. Right lower extremity strength reduced compared to left side on flexion at hip. Bilateral reduced fine motor movement.). Absent : oriented X3 (he is cooperative and he seems to know who I am. However I think his orientation is reduced.) - Routine Psychiatric Exam Present: normal affect, cooperative. Absent: good insight, good judgment IRU A/P (1) Ischemic cerebrovascular accident (CVA) Current visit: Yes Status: Acute Has evidence of a large ischemic stroke involving the right occipital area on MRI. This has resulted in substantial left sided neglect. Cognition continues to be reduced and is a barrier to his progress. However no evolution of the stroke is been identified. (2) Weakness Current visit: Yes Status: Acute Does have generalized weakness. Right lower extremity weakness worse than left. (3) Benign essential hypertension Current visit: Yes Status: Chronic Blood pressures running just slightly high at 150. (4) DM type 2 (diabetes mellitus, type 2) Qualifiers: Diabetes mellitus complication status: without complication Diabetes mellitus jail insulin use: without jail use Qualified Code(s): E11.9 - Type 2 diabetes mellitus without complications Current visit: Yes Status: Chronic Blood sugars are well controlled. (5) Parkinson disease Current visit: Yes Status: Chronic (6) Dementia associated with other underlying disease Qualifiers: Dementia behavioral disturbance: without behavioral disturbance Qualified Code(s): F02.80 - Dementia in other diseases classified elsewhere without behavioral disturbance Current visit: Yes Status: Chronic He has poor safety awareness as well as reduced cognition resulting in poor education retention. DVT Prophylaxis: Lovenox Resuscitation Status: Do Not Resuscitate - Course Hospital Course: Napoleon Clemente MD: 09/14/17 11:00 Progress is slow. Demonstrates left sided neglect and right lower extremity weakness with therapy. Reduced cognition/memory evident demonstrated by poor carryover from one day to the next with therapy. Blood sugars and pressures are improved. No evidence of progression of stroke. 09/15/17 12:00 He is cooperative with therapy although reduced cognition prevents adequate safety awareness and education. Neurologically he is stable although with gross left-sided neglect. Right lower extremity weakness noted. Blood pressures and sugars are reasonably stable. - Interventions to Obtain Goals PT Treatment Plan: Balance/Proprioception, Functional Activities, Gait Training , Patient/Family Education, Therapeutic Exercise OT Treatment Plan: ADL (Basic Care), Balance Training, Pt./Family Education, Ther. Exercise for ADL Goals Progress/Modifications: Time spent with patient and on floor reviewing data and documentin min Barriers to dismissal: Cognition, left-sided neglect, strength, endurance Medical decision-making:Mr. Mullins does complain of easy fatigability. However he is cooperative with therapy. Due to his pre-existing reduced cognition from Parkinson's disease, progress is slow. He is cooperative but cannot retain much education. He has poor safety awareness. He is improving with regard ambulatory distance. His stroke has not progressed although has been severe. Medically he is stable to continue therapy. We will discuss with therapists his progress.
--- NOTE | 2017-09-15 13:41 | IRU Team Meeting ---
IRU Team Meeting - Nursing Bladder Assistive Devices Utilized:: Medication, Absorbent Pad Bladder Management Level of Assist: Maximal Assistance Bladder Frequency of Accidents: 1 accident this shift Number of Bladder Accidents: 1 Bowel Management Level of Assist: Independent Bowel Frequency of Accidents: No accidents Vital Signs: Vital Signs - 24 hr 09/14/17 15:46 09/14/17 20:00 09/15/17 08:00 Temperature 97.5 F 97.2 F 97.8 F Pulse Rate 80 74 76 Respiratory Rate 16 16 18 Blood Pressure 154/78 H 153/71 H 148/84 H Pulse Oximetry 98 100 97 Current Medications: Ascorbic Acid (Vitamin C) 500 mg PO DAILY [facility] Last Admin: 09/15/17 08:37 Dose: 500 mg Aspirin (Asa) 81 mg PO DAILY [facility] Last Admin: 09/15/17 08:38 Dose: 81 mg Carbidopa/Levodopa (Sinemet) 1 tab PO 0630,1600 [facility] Last Admin: 09/15/17 07:34 Dose: 1 tab Citalopram Hydrobromide (Celexa) 20 mg PO [facility] Last Admin: 09/14/17 20:15 Dose: 20 mg Enoxaparin Sodium (Lovenox) 40 mg SQ DAILY [facility] Last Admin: 09/15/17 08:38 Dose: 40 mg Glipizide (Glucotrol) 5 mg PO DAILY [facility] Last Admin: 09/15/17 08:39 Dose: 5 mg Hydralazine HCl (Apresoline) 10 mg PO BID PRN PRN Reason: hypertension Lisinopril (Prinivil) 10 mg PO [facility] Last Admin: 09/14/17 20:15 Dose: 10 mg Lisinopril (Prinivil) 20 mg PO DAILY [facility] Last Admin: 09/15/17 08:39 Dose: 20 mg Metformin HCl (Glucophage Xr) 1,000 mg PO BID [facility] Last Admin: 09/15/17 08:36 Dose: 1,000 mg Mirabegron (Myrbetriq) 50 mg PO [facility] Last Admin: 09/14/17 20:16 Dose: 50 mg Multivitamins/Minerals (Therapeutic - M) 1 tab PO DAILY [facility] Last Admin: 09/15/17 08:39 Dose: 1 tab --Pom--(Dulaglutide ([Trulicity] 0.75 Mg)) 0.75 mg PO Q7D [facility] [id number] Ethyl Esters (Lovaza) 1 gm PO DAILY [facility] Last Admin: 09/15/17 08:39 Dose: 1 gm Potassium Chloride (Micro-K) 20 meq PO BIDWM [facility] Last Admin: 09/15/17 08:37 Dose: 20 meq Verapamil HCl (Calan Sr) 180 mg PO HS [facility] Last Admin: 09/14/17 20:16 Dose: 180 mg Verapamil HCl (Calan Sr) 240 mg PO DAILY [facility] Last Admin: 09/15/17 08:40 Dose: 240 mg Vitamin E (Vitamin E) 400 unit PO DAILY [facility] Last Admin: 09/15/17 08:40 Dose: 400 unit Current Medical Issues: CVA, Parkinson's Disease, DM, BP Comments: I certify that I personally led the interdisciplinary team meeting and agree with comments, barriers and goals indicated. Team meeting was held in the patient's room with the patient and the following family members present: Patient's Mr. Mullins had a difficult night with regard to sleep. He is more sleepy today therefore. He is required multiple verbal cues. Cognition is a significant impediment to his progress. However he is very cooperative. He is able to eat with some assistance. His blood sugars have been monitored and are running between 98-194. No hypoglycemic episodes have been noted. His blood pressures are controlled. Continues to demonstrate a dense left sided neglect. Right lower extremity is weak. There has however been no worsening in his neurologic status. Cognition is a significant issue. - Speech Therapy He is consuming chopped meats and thin liquids. He is being followed by speech therapy. His swallow is safe at the present time. He is able to eat without overt signs or symptoms of aspiration. He does however require frequent cues to assist with feeding. - Physical Therapy Bed, Chair, Wheelchair Transfer Assist: Minimal Assistance Ambulation Ability: Contact Guard Assistance Ambulation Distance: 437 Stair Climbing Ability: Maximal Assistance, 1 Person Assist Number of Steps Climbed: 8 Car Transfer Ability: Maximal Assistance, 1 Person Assist Comments: He requires constant verbal and at times physical cueing for navigation in the whitten. He was however able to increase his ambulation distance somewhat. He frequently displays significant left-sided neglect which is an impediment. He also tends to drag his right toes. He is fatigued easily. - Occupational Therapy Eating Ability: Contact Guard Assistance Grooming Ability: Patient Refuses Bathing Ability: Total Assistance, 2 or More Person Assist Upper Body Dressing Ability: Maximal Assistance Lower Body Dressing Ability: Total Assistance Tub Transfer Assist: Patient Refuses Toileting Assist: Total Assistance Toilet Transfer Assist: Total Assistance Comments: Continues to work with occupational therapy. However education all progress is not being demonstrated. Cognition is a significant impediment. - Goals Physical Therapy Goals: 09/15/17: 1. Pt will require 50% less cueing for navigation during gait training. 2. Pt will be at SBA level for all functional mobilities. Occupational Therapy Goals: OT goals 09/15/16: 1.) LB dressing w/ min assist. 2. ) LB bathing w/ min assist. 3.) Toileting w/ CGA. - Barriers to Discharge Barriers to Attaining Goals: Weakness, Comprehension, Other (gait and vision) - Care Plan Anticipated Length of Stay (days): 3 Anticipated DC Destination: Detention/Facility I have led this team conference and agree with the plan. Interventions/Goals: He had a difficult night last night in terms of not being able to sleep. Therefore he is quite fatigued today. We will continue working with him with physical therapy and occupational therapy as well as speech therapy. He continues to require 24 hour rehabilitation nursing monitoring. If he has improved significantly over the next several days we will continue working with him. However if he has plateaued it is likely he will need skilled care as of this Thursday09/18/16.
[2017-09-15] MEDS: MIRABEGRON 25mg TABLET PO SCH (22:02)
[2017-09-15] MEDS: LISINOPRIL 10 MG TABLET PO SCH (22:03)
[2017-09-15] MEDS: CITALOPRAM 20 MG TABLET PO SCH (22:03)
[2017-09-16] MEDS: ASPIRIN 81 MG CHEWABLE TABLET PO SCH (08:03)
[2017-09-16] MEDS: Verapamil SR 120 MG TABLET E.R. PO SCH (08:03)
[2017-09-16] MEDS: MULTI-VITAMIN + MINERAL TABLET PO SCH (08:04)
[2017-09-16] MEDS: GlipiZIDE 5 MG TABLET PO SCH (08:04)
[2017-09-16] MEDS: ASCORBIC ACID 500 MG TABLET PO SCH (08:04)
[2017-09-16] MEDS: LISINOPRIL 20 MG TABLET PO SCH (08:04)
[2017-09-16] MEDS: VITAMIN E 400 UNIT CAPSULE PO SCH (08:04)
[2017-09-16] MEDS: OMEGA-3 ACID ESTERS 1 GM CAPSULE PO SCH (08:04)
[2017-09-16] MEDS: ENOXAPARIN 40 MG/0.4 ML INJECTION SQ SCH (08:47)
--- NOTE | 2017-09-16 11:19 | IRU Progress Note ---
- Subjective/Serverity of Illness Date: 09/16/17 Mr. Mullins was evaluated on the inpatient rehabilitation unit. He is awake and alert although answers somewhat slowly. I do not believe he is fully oriented however. He denies any pains anywhere. Some mild dyspnea with activity. No chest pains. He continues to demonstrate significant left-sided neglect. Brief therapy update: For occupational therapy upper body dressing he has improved to minimum assistance. Lower body dressing improved from total assistance to moderate assistance. Physical therapy he requires maximum assistance for bed/chair/wheelchair transfers. His ambulatory ability has improved from 211 feet with moderate assistance to 437 feet with contact guard assistance. Patient's blood pressures have been reviewed. There remain a bit elevated 150. Exam Vital Signs: Temperature 97.7 F 09/16/17 08:50 Pulse Rate 72 09/16/17 10:27 Respiratory Rate 18 09/16/17 08:00 Blood Pressure 151/72 H 09/16/17 10:27 Pulse Oximetry 95 09/16/17 10:27 Height/Weight/BMI: Height 1.75 m Weight 82.7 kg Body Mass Index 27.1 - Constitutional Present: no acute distress, well nourished, well developed, cooperative Comments: While he is cooperative, he does display evidence of some confusion and slow response. - Routine HEENT Exam Eye: Present: EOMI ENT: Present: mucous membranes moist, dentition normal - Routine Neck Exam Present: supple - Routine Respiratory Exam Present: CTA bilaterally. Absent: wheezes - Routine Cardiovascular Exam Present: RRR, S1, S2. Absent: murmur - Routine Abdominal Exam Present: soft, normoactive bowel sounds, non distended. Absent: tenderness - Routine Extremities Exam Present: edema (trace edema), normal capillary refill - Routine Skin Exam Present: dry, warm - Routine Neurological Exam Present: alert, CN II-XII intact, hemineglect (once again he displays evidence of dense left visual field loss). Absent: oriented X3 - Routine Psychiatric Exam Present: normal affect, cooperative. Absent: good insight, good judgment IRU A/P (1) Ischemic cerebrovascular accident (CVA) Current visit: Yes Status: Acute His neurologic status has not worsened. He appears to be neurologically stable at present. His stroke left him with a dense left jonathan-neglect as well as some right lower extremity weakness. (2) Weakness Current visit: Yes Status: Acute There has been some evidence of improvement on therapy notes. We will discuss with him. (3) Benign essential hypertension Current visit: Yes Status: Chronic Blood pressures remain slightly elevated at times. (4) DM type 2 (diabetes mellitus, type 2) Qualifiers: Diabetes mellitus complication status: without complication Diabetes mellitus keno terminal operator insulin use: without keno terminal operator use Qualified Code(s): E11.9 - Type 2 diabetes mellitus without complications Current visit: Yes Status: Chronic (5) Parkinson disease Current visit: Yes Status: Chronic (6) Dementia associated with other underlying disease Qualifiers: Dementia behavioral disturbance: without behavioral disturbance Qualified Code(s): F02.80 - Dementia in other diseases classified elsewhere without behavioral disturbance Current visit: Yes Status: Chronic DVT Prophylaxis: Lovenox Resuscitation Status: Do Not Resuscitate - Course Hospital Course: Napoleon Clemente MD: 09/14/17 11:00 Progress is slow. Demonstrates left sided neglect and right lower extremity weakness with therapy. Reduced cognition/memory evident demonstrated by poor carryover from one day to the next with therapy. Blood sugars and pressures are improved. No evidence of progression of stroke. 09/15/17 12:00 He is cooperative with therapy although reduced cognition prevents adequate safety awareness and education. Neurologically he is stable although with gross left-sided neglect. Right lower extremity weakness noted. Blood pressures and sugars are reasonably stable. 09/16/17 11:20 He is more awake and alert today. Barriers to progress include cognition and left-sided neglect. He is working with therapy and is cooperative. There has been evidence of improvement. - Interventions to Obtain Goals PT Treatment Plan: Balance/Proprioception, Functional Activities, Gait Training , Patient/Family Education, Therapeutic Exercise OT Treatment Plan: ADL (Basic Care), Balance Training, Pt./Family Education, Ther. Exercise for ADL
--- NOTE | 2017-09-16 13:45 | Progress Note ---
- Date 09/16/17 Subjective: Micah is seen this morning in following breakfast. He states that he is overall doing ok and making "small progress". He denies having any pain or feeling short of breath. No nausea or difficulty with urination. Objective Vital signs: Temperature 97.7 F 09/16/17 08:50 Pulse Rate 72 09/16/17 10:27 Respiratory Rate 18 09/16/17 08:00 Blood Pressure 151/72 H 09/16/17 10:27 Pulse Oximetry 95 09/16/17 10:27 Height/Weight/BMI: Height 1.75 m Weight 82.7 kg Body Mass Index 27.1 - Constitutional Present: no acute distress, well nourished, well developed - Routine HEENT Exam Eye: Present: EOMI ENT: Present: mucous membranes moist, dentition normal - Routine Respiratory Exam Present: CTA bilaterally. Absent: wheezes - Routine Cardiovascular Exam Present: RRR, S1, S2. Absent: murmur - Routine Abdominal Exam Present: soft, normoactive bowel sounds, non distended. Absent: tenderness - Routine Extremities Exam Present: normal capillary refill - Routine Skin Exam Present: dry, warm - Routine Neurological Exam Present: alert, oriented X3, CN II-XII intact Left side visual loss - Routine Lymphatic Exam Lymphatic: Absent: adenopathy - Routine Psychiatric Exam Present: normal affect, cooperative Results - Labs CBC & Chem 7: 09/14/17 05:29 09/15/17 04:49 Assessment and Plan (1) Weakness Current visit: Yes Status: Acute Assessment and Plan: Impression Large acute right posterior temporal and occipital lobe infarct in the LOG SNAKER territory Weakness Hypokalemia- POA- 3.0 Hypernatremia- POA- 145 Type II diabetes Hypertension Hyperlipidemia Parkinson's with dementia Plan Overall appears medically stable Continue to monitor blood pressures- 150's systolic. On Verapamil 240 milligrams in the morning and 180 milligrams at at bedtime. In addition, patient takes twice a day lisinopril Monitor Accu-Cheks, and continue on metformin and glipizide. Today to encourage work with PT and OT for ongoing strengthening Hopeful for discharge later in the week. - Physician Narrative Narrative: Date: 09/16/17 Time: 1342 Hospital Course Summary Disclaimer: The visit summary below is not to be considered part of the above Progress Note. Hospital Course: 09/11/17 Impression Weakness Hypokalemia- POA- 3.0 Hypernatremia- POA- 145 ? Recent CVA Type II diabetes Hypertension Hyperlipidemia Parkinson's with dementia Plan Agree with admission to IRU under care of Dr. Clemente for ongoing therapy and strengthening. Given Hypokalemia will given PO potassium 40 meq at 1200 and 1700 today. Then schedule 20 meq BID. Will check BMP tomorrow morning to follow electrolytes Hypernatremia - encourage PO intake. Monitor Accu-Cheks, continue on home glipizide, metformin Continue with other home medications. Monitor blood pressure as it is elevated this morning, currently on verapamil. Home lisinopril was increased to 20 mg daily plus 10 meq at bedtime. Will add PRN hydralazine as needed for hypertension. Lovenox subcutaneous daily for DVT prophylaxis Current work with PT and OT for ongoing strengthening The hospitalist services will continue to follow patient medically manage his existing comorbidities during his stay [facility]. At time of discharge his medical care will return to his primary care provider Dr. [facility]irae [facility] Did speak with patients - Kelly. We discussed obtaining a MRI to confirm CVA and possible treatment of Plavix. Discussed risks and benefits of Plavix and pts increase risk of falling. She will think about this and we will discuss this later this afternoon further when she is here at [facility] 09/14/17 Hypokalemia and hypernatremia have resolved. BP has been moderately-severely elevated. Received a 1-time dose of clonidine on 09/12/17 and verapamil morning dose was increased to 240 mg - BP is responding favorably but remains elevated. Continue to monitor for now, and if needed could increase evening dose of verapamil for better control.
[2017-09-16] MEDS ORDERED: DULAGLUTIDE 0.75 MG PO SCH (19:00)
[2017-09-16] MEDS: LISINOPRIL 10 MG TABLET PO SCH (21:26)
[2017-09-16] MEDS: CITALOPRAM 20 MG TABLET PO SCH (21:26)
[2017-09-16] MEDS: MIRABEGRON 25mg TABLET PO SCH (21:27)
[2017-09-17] MEDS: GlipiZIDE 5 MG TABLET PO SCH (08:36)
[2017-09-17] MEDS: ASPIRIN 81 MG CHEWABLE TABLET PO SCH (08:36)
[2017-09-17] MEDS: ASCORBIC ACID 500 MG TABLET PO SCH (08:36)
[2017-09-17] MEDS: MULTI-VITAMIN + MINERAL TABLET PO SCH (08:37)
[2017-09-17] MEDS: LISINOPRIL 20 MG TABLET PO SCH (08:37)
[2017-09-17] MEDS: OMEGA-3 ACID ESTERS 1 GM CAPSULE PO SCH (08:39)
[2017-09-17] MEDS: ENOXAPARIN 40 MG/0.4 ML INJECTION SQ SCH (08:39)
[2017-09-17] MEDS: VITAMIN E 400 UNIT CAPSULE PO SCH (08:39)
[2017-09-17] MEDS: Verapamil SR 120 MG TABLET E.R. PO SCH (08:39)
[2017-09-17] MEDS: CLOPIDOGREL 75 MG TABLET PO SCH (17:49)
--- NOTE | 2017-09-17 18:40 | Procedure Note ---
Procedure Note: 20 minutes of time was spent with patient and discussing findings on MRI and treatment plan. They would like to proceed with Plavix and aspirin given acute ischemic stroke. We discussed risk and benefits and all questions were answered completely. Hopeful for SNU in the near future.
[2017-09-17] MEDS: CITALOPRAM 20 MG TABLET PO SCH ×2 (19:40→20:20)
[2017-09-17] MEDS: LISINOPRIL 10 MG TABLET PO SCH ×2 (19:41→20:20)
[2017-09-17] MEDS: MIRABEGRON 25mg TABLET PO SCH ×2 (19:43→20:20)
[2017-09-17] MEDS ORDERED: TRULICITY 0.75 MG SQ SCH (21:00)
[2017-09-18 08:47] VITALS: BP 168/75; PULSE 75; RESP 20; TEMP 97.8; O2SAT 96
[2017-09-18] MEDS: Verapamil SR 120 MG TABLET E.R. PO SCH (08:51)
[2017-09-18] MEDS: OMEGA-3 ACID ESTERS 1 GM CAPSULE PO SCH (08:51)
[2017-09-18] MEDS: GlipiZIDE 5 MG TABLET PO SCH (08:51)
[2017-09-18] MEDS: MULTI-VITAMIN + MINERAL TABLET PO SCH (08:52)
[2017-09-18] MEDS: CLOPIDOGREL 75 MG TABLET PO SCH (08:52)
[2017-09-18] MEDS: VITAMIN E 400 UNIT CAPSULE PO SCH (08:52)
[2017-09-18] MEDS: ENOXAPARIN 40 MG/0.4 ML INJECTION SQ SCH (08:52)
[2017-09-18] MEDS: LISINOPRIL 20 MG TABLET PO SCH (08:52)
[2017-09-18] MEDS: ASPIRIN 81 MG CHEWABLE TABLET PO SCH (08:52)
[2017-09-18] MEDS: ASCORBIC ACID 500 MG TABLET PO SCH (08:52)
--- NOTE | 2017-09-18 11:18 | IRU Progress Note ---
- Subjective/Serverity of Illness Date: 09/18/17 Mr. Mullins is evaluated on the inpatient rehabilitation unit. He continues to require multiple cues for therapy. Memory is poor. However today he is oriented and knows that he is at [facility] and that the month is September 2017. 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 He denies any chest pain or shortness of breath. He continues to display significant left sided neglect. His blood pressures remain borderline elevated. He has been followed by the hospitalist service in this regard. Anticipate transfer to [place] today to skilled level with outpatient follow-up by Dr. Merrill. Exam Vital Signs: Temperature 97.8 F 09/18/17 08:00 Pulse Rate 75 09/18/17 08:00 Respiratory Rate 20 09/18/17 08:00 Blood Pressure 168/75 H 09/18/17 08:00 Pulse Oximetry 96 09/18/17 08:00 Height/Weight/BMI: Height 1.75 m Weight 82.7 kg Body Mass Index 27.1 - Constitutional Present: well nourished, well developed, cooperative Comments: Even though he indicates orientation as described above, he did not recall the conversation yesterday about the [facility]. He requires multiple cues for his transfers etc. - Routine HEENT Exam Head: Present: normocephalic Eye: Present: EOMI ENT: Present: mucous membranes moist - Routine Neck Exam Present: supple - Routine Respiratory Exam Present: CTA bilaterally. Absent: rhonchi, wheezes, crackles - Routine Cardiovascular Exam Present: RRR, S1, S2. Absent: murmur - Routine Abdominal Exam Present: soft, normoactive bowel sounds, non distended. Absent: tenderness - Routine Extremities Exam Present: no edema - Routine Skin Exam Present: dry, warm - Routine Neurological Exam Present: alert, oriented X3 (see above discussion regarding his orientation.), CN II-XII intact, abnormal gait. Absent: vision grossly intact (continues to have a very dense left-sided neglect.) - Routine Psychiatric Exam Present: normal affect, cooperative. Absent: good insight, good judgment Comments: He is cooperative but continues to require multiple verbal cues. 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 use: without terminal press operator use Qualified Code(s): E11.9 - Type 2 diabetes mellitus without complications Current visit: Yes Status: Chronic (5) Parkinson disease Current visit: Yes Status: Chronic (6) Dementia associated with other underlying disease Qualifiers: Dementia behavioral disturbance: without behavioral disturbance Qualified Code(s): F02.80 - Dementia in other diseases classified elsewhere without behavioral disturbance Current visit: Yes Status: Chronic DVT Prophylaxis: Lovenox Resuscitation Status: Do Not Resuscitate - Course Hospital Course: Napoleon Clemente MD: 09/14/17 11:00 Progress is slow. Demonstrates left sided neglect and right lower extremity weakness with therapy. Reduced cognition/memory evident demonstrated by poor carryover from one day to the next with therapy. Blood sugars and pressures are improved. No evidence of progression of stroke. 09/15/17 12:00 He is cooperative with therapy although reduced cognition prevents adequate safety awareness and education. Neurologically he is stable although with gross left-sided neglect. Right lower extremity weakness noted. Blood pressures and sugars are reasonably stable. 09/16/17 11:20 He is more awake and alert today. Barriers to progress include cognition and left-sided neglect. He is working with therapy and is cooperative. There has been evidence of improvement. - Interventions to Obtain Goals PT Treatment Plan: Balance/Proprioception, Functional Activities, Gait Training , Patient/Family Education, Therapeutic Exercise OT Treatment Plan: ADL (Basic Care), Balance Training, Pt./Family Education, Ther. Exercise for ADL
--- NOTE | 2017-09-18 11:26 | Extended Care Facility Orders ---
Admission Orders Admit to:: Retirement Allergies/Adverse Reactions: Allergies atorvastatin [From Lipitor] Allergy (Unknown, Verified 09/10/17 20:28) clindamycin Allergy (Unknown, Verified 09/10/17 20:28) donepezil [From Aricept] Allergy (Unknown, Verified 09/10/17 20:27) Penicillins Allergy (Unknown, Verified 09/05/17 13:15) CONSTRICTS AIRWAY shellfish derived Allergy (Unknown, Verified 09/05/17 13:15) Admitting Diagnosis: Stroke Admitting Physician: Napoleon Clemente MD Attending Physician: Napoleon Clemente MD Code Status: Do Not Resuscitate Anticiapted Length of Stay: 30 days or less Rehab Potential: fair Rehab Prognosis: fair Diet: 09/11/17 Lunch Consistent Carbohydrate Diet [DIET] Calorie Level: 2000 Food Consistency: SOFT Comment: chopped meat, no straws Wound/Incision Care: N/A May use Facility Protocol or Standing Orders: Yes May have flu vaccine: Yes Evaluations/Treatment: Speech, PT, OT Retirement Certification: I certify that SNF services are required to be given on an Inpatient basis because of the patients need for usp care on a continuing basis for the condition(s) for which he/she received inpatient hospital services prior to his/her transfer to the SNF. SNF inpatient care is necessary for the following reasons: close monitoring of blood sugars, blood pressures and neurologic status. In addition he requires eval and treatment by ST, PT and OT in view of his CVA. Indication for Retirement: Neuro Assessment, Diabetic Assessment - Additional Information In Event of Arrest: Do Not Start CPR Resident is Aware of Diagnosis: Yes Referrals: Roxy Merrill MD [Family Provider] - (Dr. Raquel Merrill on 09/29/17 at 2:30 pm for Hosp. follow-up. [address] [place] [address])
--- NOTE | 2017-09-18 11:39 | Discharge Summary ---
Discharge Information Date of admission: 09/10/17 16:00 Anticipated date of discharge: 09/18/17 Attending Physician: Napoleon Clemente MD Primary care physician: Roxy Merrill MD Consults: 09/17/17 09:28 Doctor [Physician Consult] [CONS] Routine Consulting Provider: Paul Givens Reason For Exam: skilled placement Ordering Provider has Notified General Dentist: Yes 09/17/17 09:30 Doctor [Physician Consult] [CONS] Routine Consulting Provider: Tonio Shea Reason For Exam: skilled Ordering Provider has Notified General Dentist: Yes 09/17/17 09:33 Doctor [Physician Consult] [CONS] Routine Consulting Provider: Linda Watts Reason For Exam: SKILLED Ordering Provider has Notified General Dentist: Yes 09/10/17 16:39 Physician Consult [CONS] Routine Consulting Provider: Hong Zuniga Reason For Exam: Hospitalist Ordering Provider has Notified General Dentist: No - Discharge Diagnosis (1) Ischemic cerebrovascular accident (CVA) Status: Acute (2) Weakness Status: Acute (3) Benign essential hypertension Status: Chronic (4) DM type 2 (diabetes mellitus, type 2) Status: Chronic (5) Parkinson disease Status: Chronic (6) Dementia associated with other underlying disease Status: Chronic 1. Subacute right hemispheric CVA and posterior cerebral artery circulation resulting in left sided neglect and right upper and lower show any weakness 2. Generalized debility 3. Benign essential hypertension 4. Diabetes mellitus type 2, not on long-term insulin, controlled 5. Parkinson's disease 6. Dementia - Laboratory Labs: 09/14/17 05:29 09/15/17 04:49 History of Present Illness HPI: 09/18/17 11:39 Mr. Mullins is a very pleasant 77-year-old male living at home with his . He does have underlying Parkinson's disease, hypertension and diabetes mellitus. He fell at home on 09/01/2017 striking his head. He was evaluated in the emergency department and a negative CT scan and negative physical exam was noted. He was sent home. He again returned to the emergency department after another fall on 09/05/2017 again with negative exam. He was ultimately seen by Dr. Merrill her office on 09/10/2017. At that time she noted a dense left- sided neglect as well as right-sided weakness. Contact was made with IRU and he was felt to be an appropriate candidate for rehabilitation. The patient as noted above has underlying Parkinson's disease, reduced memory, diabetes mellitus and hypertension. He was admitted to inpatient rehabilitation on 09/11/2017 for a multidisciplinary approach along with medical management of his multiple medical Hospital Course This is a general summary of the patient's hospital course. For more details refer to the complete medical record. The patient was admitted to acute inpatient rehabilitation on 09/11/2017. At the time of admission he was awake and alert although displayed reduced memory. He was seen by speech therapy to assess his swallowing. He was felt to be safe for swallowing thin liquids but it was recommended that he avoid the use of a straw. He was to consume chopped meats. He was seen by occupational therapy. Upon admission he was contact-guard for eating and ultimately required minimum assistance for eating. Grooming was initially with minimum assistance and ultimately with moderate assistance. Bathing declined from minimum assistance to maximum assistance. Upper body dressing initially was modified independent functioning and ultimately maximum assistance was required. Lower body dressing was initially with minimum assistance and ultimately with total assistance. Toileting assist was performed with total assistance. Toilet transfer assistance with required minimum assistance initially and he subsequently refused that. Bed/chair/wheelchair transfers were initially with minimum assistance and ultimately with total assistance. With physical therapy had a shuffling gait. Bed/chair/wheelchair transfers were initially with maximum assistance and at the conclusion of therapy also required maximum assistance. Toilet assistance with with total assistance. Toilet transfer assistance was with maximum assistance. Car transfers were able to be performed initially with maximum assistance and ultimately with contact- guard assistance. Ambulation ability was with contact-guard assistance at 182 feet with a front-wheeled walker upon admission. Upon dismissal he continued to required contact-guard assistance with a front-wheeled walker but he was able to ambulate 258 feet. He was able to climb 8 stairs initially with maximum assistance. Also he was able to climb 12 steps with moderate assistance. He was followed by the hospitalist service as well as Dr. Clemente. His blood sugars are reasonably well controlled. He had a reasonably good appetite. However his blood pressures remained borderline elevated around 150. He was already on both verapamil and lisinopril twice daily. Discussion was held with the patient's and the hospitalist service as to how far to go with regard to his evaluation for his stroke. She did request an MRI and this was performed on 09/11/2017. This demonstrated a large posterior temporal and occipital cerebral infarction in the distribution of the posterior cerebral artery. We did not do carotid Doppler studies at this time and these will need to be done as an outpatient if the patient and family wish to pursue the possibility of surgical intervention. However he is started on Plavix at the present time. He was not started on a statin in view of his previous adverse reaction to a tortuous statin. He was not able to make adequate progress and could not tolerate 3 hours daily on inpatient rehabilitation. For this reason he was transferred to [facility] care unit and he will continue under the care of Dr. Merrill at that location. He is transferred today on September 18, 2016. He is felt to be stable for the transfer. Hospital course: 09/11/17 Impression Weakness Hypokalemia- POA- 3.0 Hypernatremia- POA- 145 ? Recent CVA Type II diabetes Hypertension Hyperlipidemia Parkinson's with dementia Plan Agree with admission to IRU under care of Dr. Clemente for ongoing therapy and strengthening. Given Hypokalemia will given PO potassium 40 meq at 1200 and 1700 today. Then schedule 20 meq BID. Will check BMP tomorrow morning to follow electrolytes Hypernatremia - encourage PO intake. Monitor Accu-Cheks, continue on home glipizide, metformin Continue with other home medications. Monitor blood pressure as it is elevated this morning, currently on verapamil. Home lisinopril was increased to 20 mg daily plus 10 meq at bedtime. Will add PRN hydralazine as needed for hypertension. Lovenox subcutaneous daily for DVT prophylaxis Current work with PT and OT for ongoing strengthening The hospitalist services will continue to follow patient medically manage his existing comorbidities during his stay [facility]. At time of discharge his medical care will return to his primary care provider Dr. Merrill [facility] Did speak with patients - Kelly. We discussed obtaining a MRI to confirm CVA and possible treatment of Plavix. Discussed risks and benefits of Plavix and pts increase risk of falling. She will think about this and we will discuss this later this afternoon further when she is here at [facility] 09/14/17 Hypokalemia and hypernatremia have resolved. BP has been moderately-severely elevated. Received a 1-time dose of clonidine on 09/12/17 and verapamil morning dose was increased to 240 mg - BP is responding favorably but remains elevated. Continue to monitor for now, and if needed could increase evening dose of verapamil for better control. Time spent with patient: greater than 35 minutes Discharge Plan - Med Rec/Dispo Referrals/Follow Up: Roxy Merrill MD [Family Provider] - (Dr. Raquel Merrill on 09/29/17 at 2:30 pm for Hosp. follow-up. [address] [place] [address]) Prescriptions: New Aspirin Chewable [ASA] 81 mg PO DAILY tab.chew Clopidogrel [Plavix] 75 mg PO DAILY tab Verapamil SR [Calan Sr] 240 mg PO DAILY tab Verapamil SR [Calan Sr] 180 mg PO HS tab Continue Metformin HCl [Metformin HCl ER] 1,000 mg PO BID #0 Carbidopa/Levodopa [Carbidopa-Levodopa 25-100 Tab] 1 tab PO BID GlipiZIDE [Glucotrol] 5 mg PO DAILY Vitamin E 400 unit PO DAILY Lisinopril [Prinivil] 20 mg PO BID Luck-3/Dha/Epa/Fish Oil [Fish Oil 1,000 mg Softgel] 1,000 mg PO DAILY Ascorbic Acid [Vitamin C] 500 mg PO DAILY Citalopram [Celexa] 20 mg PO HS Mirabegron [Myrbetriq] 50 mg PO HS #0 Dutasteride/Tamsulosin HCl [Dutasteride-Tamsulosin 0.5-0.4] 1 tab PO DAILY Multivitamin [One Daily] 1 tab PO DAILY Lisinopril [Prinivil] 10 mg PO HS Changed Dulaglutide [Trulicity] 0.75 mg SQ WEEKLY #0 Discontinued Verapamil SR [Calan Sr] 180 mg PO BID - Disposition 03 To SNU Not [facility] ([facility])
--- NOTE | 2017-09-18 11:53 | Letter to Referring Physician ---
Dear Dr. Merrill, This is a brief note to bring you up-to-date on the status of Micah Mullins and his stay on the acute inpatient rehabilitation unit at [facility]. As you are aware, he was referred from your office because of evidence of a subacute CVA resulting in a dense left jonathan-neglect and some right-sided weakness. The patient was admitted to inpatient rehabilitation unit at [facility] on September 10, 2017. While on inpatient rehabilitation, this patient was seen by occupational therapy and physical therapy as well as speech therapy. However, unfortunately he did not progress adequately on inpatient rehabilitation. For that reason it was determined that he would be best served by transferring to a retirement unit. We worked with his and the patient in this regard and they chose [facility]. He is being transferred today on 09/18/2017. We also monitored and managed the patient's diabetes and hypertension while on Acute Rehab. Please see a copy of the history and physical examination as well as discharge summary enclosed with this letter for further details. Discussion was had with the patient's and patient regarding how far to workup his CVA. His requested an MRI be done. This was performed on 2016 demonstrating a large right posterior temporal and occipital CVA. This was ischemic in origin. Please note that we did not do carotid Dopplers at this time. If you discuss this with the patient and his as an outpatient and if they wish surgical intervention in the event of stenosis, that can be done as an outpatient. Thank you for allowing us to be involved in this nice patient's care. Please contact me directly should you have any questions regarding their stay on the inpatient rehabilitation unit. Sincerely, Napoleon Clemente M.D.
== END 2017-09-18 13:45 | DRG 57 ==
PROVIDERS: ADMIT Internal Medicine; ATTEND Internal Medicine